=== PATIENT | male | born 2000 | race Caucasian/White ===

== ENCOUNTER 2020-06-03 14:56 | Emergency (ER) | payer OTHER, SELFPAY ==
[2020-06-03 15:53] VITALS: BP 147/79; PULSE 88; RESP 16; TEMP 36.9; O2SAT 97; BMI 29.1
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
== END 2020-06-03 19:06 | disposition home or self-care (01) ==
PROVIDERS: Emergency Provider Emergency Medicine; PCP Pediatrics
DX: S06.0X0A Concussion without loss of consciousness, initial encounter (principal); G44.309 Post-traumatic headache, unspecified, not intractable; V47.5XXA Car driver injured in collision with fixed or stationary object in traffic accident, initial encounter; Y93.9 Activity, unspecified; Y92.9 Unspecified place or not applicable; Y99.9 Unspecified external cause status
CPT/HCPCS: 99283; 99284

== ENCOUNTER 2020-07-29 19:03 | Emergency (ER) | payer OTHER, SELFPAY ==
[2020-07-29 19:38] VITALS: BP 116/64; PULSE 74; RESP 16; TEMP 36.8; O2SAT 100; BMI 29.1
[2020-07-29 22:23] VITALS: BP 138/76; PULSE 84; RESP 16; TEMP 36.8; O2SAT 99
--- NOTE | 2020-07-29 22:24 | PC.NURSE ---
pt has lac to left index finger. Non adherent dressing and gauze applied. Bleeding controlled.
--- NOTE | 2020-07-29 23:41 | PC.NURSE ---
at bedside for primary eval.
--- NOTE | 2020-07-29 23:46 | ED.WOUNDLAC ---
HPI - Wound/Laceration General Chief Complaint: Wound/Laceration Stated Complaint: FINGER LAC Time Seen by Provider: 07/29/20 23:43 Source: patient Mode of arrival: ambulatory Limitations: no limitations History of Present Illness HPI narrative: 20-year-old male cut his left index finger with a clean knife while cutting avocado at home, patient is left handed, no active bleeding at this point, patient is able to make a fist and move the finger. Related Data Allergies Allergy/AdvReac Type Severity Reaction Status Date / Time amoxicillin [Amoxicillin] Allergy Unknown RAsh Unverified 04/05/20 16:51 Review of Systems Review of Systems: All other systems are reviewed and are negative Constitutional: Reports as per HPI and Reports no additional constitutional complaints Eyes: Reports as per HPI and Reports no additional eye complaints Reports system reviewed and no additional complaints, except as documented Cardiovascular: Reports as per HPI and Reports no additional cardiovascular complaints Respiratory: Reports as per HPI and Reports no additional respiratory complaints Gastrointestinal: Reports as per HPI and Reports no additional gastrointestinal complaints Genitourinary: Reports no additional female genitourinary complaints Musculoskeletal: Reports no additional musculoskeletal complaints Skin/Breast: Reports system reviewed and no additional complaints, except as docu Psychiatric: Reports no additional psychiatric complaints Endocrine: Reports no additional endocrine complaints Hematologic/Lymphatic: Reports no additional hematologic/lymphatic complaints Allergic/Immunologic: Reports no additional allergic/immunologic complaints Reports system reviewed and no additional complaints, except as documented and Reports Abnormal speech present [facility] Past Medical History Medical History No known health problems Social History Social History Alcohol intake: never Smoking Status: Never smoker Advance Directives: No Physical Exam Vital Signs: Vital Signs: Last Vital Signs Temp 98.3 F 07/29/20 22:23 Pulse 84 07/29/20 22:23 Resp 16 07/29/20 22:23 BP 138/76 07/29/20 22:23 Pulse Ox 99 07/29/20 22:23 Body Mass Index 29.1 Vital signs have been reviewed as normal and appeared to be correct. Blood pressure normal. Heart rate normal. Respiration rate normal. Temperature normal. Oxygen saturation normal. Appearance: Alert. Oriented X3. No acute distress. Head: Normal external exam. Normocephalic. Atraumatic. No Nunez signs noted. No raccoon eyes noted Eyes: PERRLA. EOMI. Conjunctiva and sclera normal. Eyelids normal. ENT: EAC normal. TM's Normal. Pharynx normal. Uvula midline. Moist mucous membranes. No trismus noted. No drooling noted. No muffled voice noted. Neck: Normal inspection. Neck supple. FROM. No adenopathy. Thyroid Normal. No meningeal signs. No neck mass noted. CVS: Normal heart rate and rhythm. Heart sound normal. No murmurs noted. Pulses normal throughout. Respiratory: No respiratory distress. Painless inspiration. Breath sounds normal. No wheezes/rales/rhonchi noted. Chest nontender. No accessory muscle usage noted or decreased air movement noted. Abdomen: Soft and nontender. Bowel sounds normal in all 4 quadrants. No distention noted. No organomegaly noted. No visible injury noted. Back: No CVA tenderness. Full range of motion noted. Skin: Skin warm and dry. Normal skin color. Normal skin turgor. No rashes/lesions/lacerations noted. Extremities: 2 cm long incision horizontal to middle phalanx of left index. No active bleeding, no visible tendon injury, full range of motion of the index finger, good cap refill less than 2 seconds. Neuro: Oriented X 3. No motor deficit. No sensory deficit. Reflexes normal. Course Course Course Narrative: Assessment and plan. 20-year-old male status post left index finger laceration cut by a knife unintentionally. Status post laceration repair. Patient is able to have full range of motion to the left index no tendon injury noted. Patient is up-to-date on his tetanus shot. Procedures Laceration Laceration 1: Site: hand (Left index, palmar side, middle phalanxz) Side (If applicable): left Size (cm): 3 Description: linear Depth: simple, single layer Local Anesthetic: lidocaine 2% Pre-repair: wound explored Skin layer closed with: other (silk) Size (cm): 4-0 Number of sutures: 5 Technique: simple, interrupted Discharge Plan Discharge Clinical Impression: Laceration Patient Disposition: Home, Self-Care Instructions: Finger Laceration (ED) Additional Instructions: Come back to the ED in 7-10 days for suture removal. Referrals: Bernadette Jordan MD [Primary Care Provider] - 10 days
--- NOTE | 2020-07-29 23:55 | PC.NURSE ---
at bedside for wound repair.
--- NOTE | 2020-07-29 23:57 | PC.NURSE ---
Verbal order from MD for 2% Lido as 1% Lido OOS. MD to change order in SEP.
--- NOTE | 2020-07-30 00:34 | PC.NURSE ---
5 stitches applied to laceration on 2nd finger, left hand. Wound cleaned and bandaged. Awaiting DC paperwork.
== END 2020-07-30 00:36 | disposition home or self-care (01) ==
PROVIDERS: Emergency Provider Emergency Medicine; PCP Pediatrics
DX: S61.211A Laceration without foreign body of left index finger without damage to nail, initial encounter (principal); M79.642 Pain in left hand; W26.0XXA Contact with knife, initial encounter; Y93.G3 Activity, cooking and baking; Y92.000 Kitchen of unspecified non-institutional (private) residence as the place of occurrence of the external cause; Y99.9 Unspecified external cause status
CPT/HCPCS: 12002; 99283

== ENCOUNTER → 2023-01-21 08:13 | Outpatient (BNVA) | payer OTHER, SELFPAY | PROVIDERS: PCP Pediatrics; Visit Provider Physician Assistant | DX: Z77.21 Contact with and (suspected) exposure to potentially hazardous body fluids (principal) | CPT/HCPCS: 99204 ==

== ENCOUNTER 2023-06-23 19:00 | Emergency (ER) | payer OTHER, SELFPAY ==
[2023-06-23 19:17] VITALS: BP 142/86; BP 172/100; PULSE 75; PULSE 88; RESP 16; TEMP 37.1; O2SAT 97; O2SAT 98; BMI 29.2
--- NOTE | 2023-06-23 19:43 | ECG_ITS ---
Test Reason : DIZZINESS Blood Pressure : / mmHG Vent. Rate : 072 BPM Atrial Rate : 072 BPM P-R Int : 150 ms QRS Dur : 092 ms QT Int : 384 ms P-R-T Axes : 024 041 003 degrees QTc Int : 420 ms Normal sinus rhythm Normal ECG No previous ECGs available Referred By: Valery Sainz Electronically Signed By:BEA HERNANDEZ
--- NOTE | 2023-06-23 19:44 | ED.GENADULT ---
HPI - General Adult General Chief complaint: Headache Stated complaint: HEADACHE AFTER DRUG USE Time Seen by Provider: 06/23/23 19:19 Source: patient Mode of arrival: EMS Limitations: no limitations History of Present Illness HPI narrative: Patient is a 23-year-old male who presents emergency department via EMS for evaluation. He states that he presented to a home for a call regarding an overdose. He does report that there was drug paraphernalia noted to be in the home, he was wearing gloves the entire time and does not feel as though he had any transdermal exposure. He states that suddenly he became very lightheaded, felt unsteady on his feet, and diaphoretic. He ultimately had to exit the house and go outside. He reports that the symptoms lasted approximately 10 minutes before self-resolving, while simultaneously he noted that he was experiencing a frontal headache. He reports history of headaches ?here and there? nothing with any consistent frequency. He denies photophobia, phonophobia. At this time the lightheadedness and diaphoresis has self-resolved. Denies vision changes, neck pain, neck stiffness, chest pain, shortness of breath, palpitations, nausea, vomiting, abdominal pain, numbness or tingling of the extremities, weakness. He reports that others who had responded to the call more inside of the home are not experiencing similar symptoms. Related Data Allergies Allergy/AdvReac Type Severity Reaction Status Date / Time amoxicillin [Amoxicillin] Allergy Unknown RAsh Verified 06/23/23 19:53 Review of Systems Review of Systems: Yes all other systems are reviewed and are negative PMFSH Past Medical History Attestation statement: The following information was validated with the patient. Source: old records reviewed Medical History No known health problems Social History Social History Alcohol intake: never Smoked in Last 30 Days: No Use of substances other than those prescribed or required for medical reasons: No Advance Directives: No Advance Directives Information Provided: No Physical Exam ED Vital Signs: Vital Signs - 24 hr 06/23/23 19:17 06/23/23 21:04 Temperature 98.7 F Pulse Rate 75 86 Respiratory Rate 16 20 Blood Pressure 142/86 H 142/88 H Pulse Oximetry 97 98 Oxygen Delivery Method Room Air Room Air BMI result Body Mass Index 29.2 Appearance: Alert.?Oriented to person, place and time. No acute distress.?Normal affect. Eyes: Pupils equal, round and reactive to light.? ENT: Pharynx normal.?? Neck: Normal inspection.? Neck supple.?? CVS: Heart sounds normal. Normal heart rate and rhythm.? Pulses normal.?? Respiratory: No respiratory distress.? Lung sounds clear to auscultation bilaterally?? Abdomen: Soft and non-tender. Normoactive bowel sounds. No pulsatile mass.?? Skin: Skin warm and dry.? Normal skin color.? ? Extremities: No lower extremity edema.? No calf ttp? Neuro: Moves all extremities spontaneously. Sensation intact bilaterally. CN II-XII intact. No focal neuro deficits. Ambulates with normal steady gait. Course Reevaluation(s) Reevaluation #1: CBC is without leukocytosis or anemia. CMP is overall unremarkable. EKG reveals a normal sinus rhythm without acute ischemic abnormality, no arrhythmia, high sensitive troponin below detectable levels no risk factors, unlikely ACS. At this time, feel the patient is stable for discharge, outpatient follow-up with primary care provider, reviewed worrisome signs and symptoms that would warrant re-evaluation in the emergency department. All questions answered. Stable for discharge. Time: 20:53 Medications Administered Discontinued Medications Generic Name Dose Route Start Last Admin Trade Name Freq PRN Reason Stop Dose Admin Acetaminophen 975 mg 06/23/23 19:49 06/23/23 19:54 Acetaminophen 325 Mg Tablet PO 06/23/23 19:50 975 mg ONCE ONE Administration Medical Decision Making Medical Decision Making [facility] Narrative: Patient is a 23-year-old male with no reported past medical history presenting to emergency department for evaluation of sudden onset of lightheadedness and diaphoresis that self resolved after approximately 10 minutes with persistent right frontal headache which is reportedly mild 4/10. At this time he has no focal neurological deficits. His physical examination is benign. Vitals are overall stable aside from hypertension; 142/86 without reports of prior elevated blood pressure readings for diagnosed hypertension. Will obtain CBC to evaluate for leukocytosis/ anemia, CMP and lipase to evaluate for abnormal electrolytes /abnormal renal function/ abnormal hepatic/biliary function, EKG and troponin to evaluate for ischemia/ACS. Differential Diagnosis Differential Diagnoses: The differential diagnosis associated with the presentation includes (Arrhythmia, carbon monoxide exposure, tension headache. Low risk factors for ACS, perc negative unlikely PE. No focal neurological deficits, clinically have lower suspicion for ICH, SDH, CVA, intracranial mass.) Admission/Observation Consideration of admission/observation: Escalation of care including admission/observation considered (See narrative above and course narrative for further detail) Lab Data MDM Lab Attestation statement: I reviewed the patient's lab results. (See course narrative for further details) 06/23/23 20:11 06/23/23 20:11 Labs: Lab Results 06/23/23 06/23/23 Range/Units 20:11 20:18 WBC 9.7 (4.8-10.8) X10*3/uL RBC 5.74 (4.60-5.80) X10*6/uL Hgb 17.4 (14.0-18.0) g/dl Hct 49.9 (42.0-52.0) % MCV 86.9 (80.0-98.0) fL MCH 30.3 (27.0-33.0) pg MCHC 34.9 (31.0-36.0) g/dl RDW 11.8 (11.0-16.0) % Plt Count 271 (160-400) X10*3/uL MPV 8.6 L (9.4-12.4) fL Immature Gran % (Auto) 0.3 (0.0-0.4) % Neut % (Auto) 70.8 (45-73) % Lymph % (Auto) 21.4 (20-40) % [place] % (Auto) 5.9 (2-11) % Eos % (Auto) 1.1 (0-4) % Baso % (Auto) 0.5 (0-2) % Lymph # (Auto) 2.1 (1.2-4.9) X10*3/uL [place] # (Auto) 0.6 (0.1-1.2) X10*3/uL Eos # (Auto) 0.1 (0.0-0.4) X10*3/uL Baso # (Auto) 0.1 (0.0-0.2) X10*3/uL Abs Immat Gran (auto) 0.03 (0.00-0.03) X10*3/uL Absolute Neuts (auto) 6.9 (2.0-8.3) x10*3/uL Absolute Nucleated RBC 0.000 (0.0-0.012) X10*3/uL Nucleated RBC % (auto) 0.0 (0.0-0.2) /100WBC PT 11.9 (11.1-13.3) SEC INR 1.0 (0.9-1.1) Carboxyhemoglobin % 3.5 % Sodium 140 (135-145) mmol/L Potassium 3.9 (3.3-5.1) mmol/L Chloride 105 (96-108) mmol/L Carbon Dioxide 26 (22-29) mmol/L Anion Gap 13 (12-20) BUN 9 (9-16) mg/dL Creatinine 0.78 (0.5-1.4) mg/dL Estim Creat Clear Calc 178.2 Estimated GFR > 60 Random Glucose 96 (60-115) mg/dL Calcium 10.2 (8.4-10.2) mg/dL Total Bilirubin 0.7 (0.0-1.0) mg/dL AST 27 (5-37) U/L ALT 53 H (0-40) U/L Alkaline Phosphatase 68 (39-117) U/L Troponin I High Sens < 2.7 (<3.5-35.0) ng/L Total Protein 7.7 (6.5-8.0) g/dL Albumin 5.0 (3.5-5.0) g/dL Independent Interpretation I performed an independent interpretation of an: EKG Interpretation: Rate: 72 Rhythm:? Normal sinus rhythm [place]:? Normal Normal P waves.? Normal RAJINDER.?? Normal QRS complex.?? ST T wave :??No ST elevation, no ST depression, no T-wave inversion qTC:420 prior studies:? None available for review The study has been interpreted contemporaneously by me. Independent Historian Clinical information obtained from an independent historian. History obtained from or confirmed by: EMS Discharge Plan Discharge Clinical Impression: Headache Patient Disposition: Home, Self-Care Instructions: Acute Headache (ED) Additional Instructions: As discussed, please contact your primary care provider and arrange for a follow-up visit for any persistent symptoms. You may return back to emergency department with any new or worsening symptoms or concerns. Referrals: Physician,Unknown J [Primary Care Provider] - Interventions: ED Discharge Assessment Last Done: 06/23/23 21:03
[2023-06-23] MEDS: Acetaminophen 325 MG TABLET 975 MG PO (19:54)
[2023-06-23 20:17] LABS: MANUAL DIFF FLAG NO
[2023-06-23 20:18] LABS: Basophils Absolute Auto 0.1 X10*3/uL (0.0-0.2); Basophils Percent Auto 0.5 % (0-2); Eosinophils Absolute Auto 0.1 X10*3/uL (0.0-0.4); Eosinophils Percent Auto 1.1 % (0-4); Hematocrit 49.9 % (42.0-52.0); Hemoglobin 17.4 g/dl (14.0-18.0); Imm Gran Abs Auto 0.03 X10*3/uL (0.00-0.03); Imm Gran Pct Auto 0.3 % (0.0-0.4); Lymphocytes Absolute Auto 2.1 X10*3/uL (1.2-4.9); Lymphocytes Percent Auto 21.4 % (20-40); Mean Corpuscular HGB Conc 34.9 g/dl (31.0-36.0); Mean Corpuscular Hemoglobin 30.3 pg (27.0-33.0); Mean Corpuscular Volume 86.9 fL (80.0-98.0); Mean Platelet Volume 8.6 fL (9.4-12.4); Monocytes Absolute Auto 0.6 X10*3/uL (0.1-1.2); Monocytes Percent Auto 5.9 % (2-11); Neutrophils Absolute Auto 6.9 x10*3/uL (2.0-8.3); Neutrophils Percent Auto 70.8 % (45-73); Platelet Count 271 X10*3/uL (160-400); Red Blood Count 5.74 X10*6/uL (4.60-5.80); Red Cell Distribution Width 11.8 % (11.0-16.0); White Blood Count 9.7 X10*3/uL (4.8-10.8)
[2023-06-23 20:22] LABS: Carbon Monoxide POC 3.5 %
[2023-06-23 20:23] LABS: Prothrombin Time 11.9 SEC (11.1-13.3)
[2023-06-23 20:24] LABS: Carbon Monoxide Refer to POC result
[2023-06-23 20:32] LABS: Alanine Aminotransferase 53 U/L (0-40); Alkaline Phosphatase 68 U/L (39-117); Anion Gap 13 (12-20); Aspartate Amino Transferase 27 U/L (5-37); Bilirubin Total 0.7 mg/dL (0.0-1.0); Blood Urea Nitrogen 9 mg/dL (9-16); Calcium 10.2 mg/dL (8.4-10.2); Carbon Dioxide 26 mmol/L (22-29); Chloride 105 mmol/L (96-108); Creatinine Clr Calc Pharmacy 178.2; Estimated Glomerular Filt Rate > 60; Glucose Random 96 mg/dL (60-115); Potassium 3.9 mmol/L (3.3-5.1); Sodium 140 mmol/L (135-145); Total Protein 7.7 g/dL (6.5-8.0)
[2023-06-23 20:39] LABS: Troponin-I High Sensitivity < 2.7 ng/L (<3.5-35.0)
[2023-06-23 21:04] VITALS: BP 142/88; PULSE 86; RESP 20; O2SAT 98
== END 2023-06-23 21:09 | disposition home or self-care (01) ==
PROVIDERS: Nurse Practitioner Family; Emergency Provider Student in an Organized Health Care Education/Training Program
DX: R51.9 Headache, unspecified (principal); R42 Dizziness and giddiness; Z79.899 Other long term (current) drug therapy
CPT/HCPCS: 36415; 80053; 82375; 84484; 85025; 85610; 93005; 99283; 99284

== ENCOUNTER → 2023-06-23 19:43 | Outpatient (BNV) | payer OTHER, SELFPAY | PROVIDERS: Emergency Provider Student in an Organized Health Care Education/Training Program; Visit Provider Internal Medicine | DX: R42 Dizziness and giddiness (principal) | CPT/HCPCS: 93010 ==